=== PATIENT | female | born 1995 | race Caucasian/White ===

== ENCOUNTER 2017-09-23 19:34 | Emergency (ER) | payer OTHER ==
[~2017-09-23] VITALS: Ht 170.2 cm; Wt 85.0 kg
[2017-09-23] MEDS ORDERED: ONDANSETRON ODT 4 MG ONE (19:50)
[2017-09-23] MEDS ORDERED: ACETAMINOPHEN 500 MG TABLET ONE (19:50)
[2017-09-23] MEDS ORDERED: ONDANSETRON ODT 4 MG PO ONE (20:00)
[2017-09-23] MEDS ORDERED: PLEASE ENTER ALLERGIES MC SCH (20:00)
[2017-09-23] MEDS ORDERED: ACETAMINOPHEN 325 MG TABLET PO ONE (20:00)
[2017-09-23] MEDS ORDERED: SODIUM CHLORIDE 0.9% 1,000ML IV ONE (20:00)
[2017-09-23] MEDS ORDERED: MORPHINE SULFATE 4 MG/ML, 1ML ONE (20:27)
[2017-09-23] MEDS ORDERED: MORPHINE SULFATE 4 MG/ML, 1ML IVPush PRN (20:30)
[2017-09-23 20:39] LABS: BASOPHILS % (AUTO) 0 % (0-1); EOSINOPHILS # (AUTO) 0.11 x10^3/uL (0-0.4); EOSINOPHILS % (AUTO) 1 % (1-7); LYMPHOCYTES # (AUTO) 1.12 x10^3/uL (1-3.4); LYMPHOCYTES % (AUTO) 10 % (22-44); MD NO; MEAN CORPUSCULAR HEMOGLOBIN 31.4 pg (27.0-34.8); MEAN CORPUSCULAR HGB CONC 34.5 g/dL (32.4-35.8); MEAN CORPUSCULAR VOLUME 90.9 fL (80-100); MEAN PLATELET VOLUME 10.8 fL (7.4-10.4); MONOCYTES # (AUTO) 0.82 x10^3/uL (0.2-0.8); MONOCYTES % (AUTO) 8 % (2-9); NEUTROPHILS # (AUTO) 8.73 x10^3/uL (1.8-6.8); NEUTROPHILS % (AUTO) 81 % (42-75); PLATELET COUNT 193 x10^3/uL (130-400); RED BLOOD COUNT 4.69 x10^6/uL (3.82-5.3); RED CELL DISTRIBUTION WIDTH 13.1 % (9.6-15.2)
[2017-09-23 20:46] LABS: CULTURE INDICATED? YES; MICROSCOPIC INDICATED
[2017-09-23 20:52] LABS: ALANINE AMINOTRANSFERASE 18 U/L (12-78); ALBUMIN 3.7 g/dL (3.4-5.0); ANION GAP 9 mmol/L (5-15); CALCIUM 8.4 mg/dL (8.5-10.1); CHLORIDE 107 mmol/L (98-107); CREATININE 0.93 mg/dL (0.55-1.02)
[2017-09-23 20:56] LABS: ALKALINE PHOSPHATASE 82 U/L (45-117); BILIRUBIN,TOTAL 0.5 mg/dL (0.2-1.0); TOTAL PROTEIN 7.9 g/dL (6.4-8.2)
[2017-09-23] MEDS ORDERED: CEFTRIAXONE PMX 2GM/50ML 50 ML ONE (20:56)
[2017-09-23] MEDS ORDERED: CEFTRIAXONE 2 GM in SODIUM CHLORIDE 0.9% 50 ML IV SCH (21:00)
[2017-09-23] MEDS ORDERED: KETOROLAC 30 MG/1 ML ONE (21:41)
[2017-09-23] MEDS ORDERED: KETOROLAC 60 MG/2 ML IVPush ONE (22:00)
[2017-09-23 22:21] VITALS: BP 113/70
== END 2017-09-23 22:21 | disposition home or self-care (01) ==
LOC: ED 22:15
DX: N10 Acute pyelonephritis (principal); R31.9 Hematuria, unspecified
CPT/HCPCS: 36415; 74176; 80053; 81001; 83605; 84145; 84703; 85025; 87040; 87086; 96365; 96375; 99285; J0696; J1885; J7030; Q0162; 96374

== ENCOUNTER 2018-05-01 18:01 | Emergency (ER) | payer OTHER ==
[~2018-05-01] VITALS: Ht 170.2 cm; Wt 88.5 kg
[2018-05-01] MEDS ORDERED: DIPHENHYDRAMINE 50 MG CAPSULE PO STA (18:49)
[2018-05-01] MEDS ORDERED: LORazepam 1MG TABLET PO ONE (19:00)
[2018-05-01] MEDS ORDERED: FAMOTIDINE 20 MG TABLET PO ONE (19:00)
--- NOTE | 2018-05-01 19:10 | NUR ---
REVIEW OF CHART, ASSUME CARE OF PT AT THIS TIME.
[2018-05-01] MEDS ORDERED: FAMOTIDINE 20 MG TABLET ONE (19:14)
[2018-05-01] MEDS ORDERED: DIPHENHYDRAMINE 25 MG CAPSULE ONE (19:15)
[2018-05-01] MEDS ORDERED: LORazepam 1MG TABLET ONE (19:15)
[2018-05-01 19:35] VITALS: BP 155/76
--- NOTE | 2018-05-01 19:35 | NUR ---
CARE ASSUMED FOR DC. PT DC'D HOME WITHRX X 1 AND UNDERSTANDING OF INSTRUCTIONS. PT AND FAMILY MEMBER ESCORTED TO DC DESK.
== END 2018-05-01 19:40 | disposition home or self-care (01) ==
LOC: ED 19:34
DX: L70.0 Acne vulgaris (principal)
CPT/HCPCS: 87081; 87880; 99284; J7512